=== PATIENT | male | born 1975 | race Two or more races ===

== ENCOUNTER 2018-06-08 19:10 | Emergency (ER) | payer SELFPAY ==
[~2018-06-08] VITALS: Ht 177.8 cm; Wt 81.6 kg
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
[2018-06-08 19:24] VITALS: BP 127/85
[2018-06-08] MEDS ORDERED: Norco 5mg/325mg tab PO ONE (19:45)
[2018-06-08] MEDS ORDERED: Ketorolac 30mg Inj IM ONE (19:45)
--- NOTE | 2018-06-08 20:03 | NUR ---
ED Nurse Note: Pt went to CT sacn.
--- NOTE | 2018-06-08 20:09 | NUR ---
ED Nurse Note: Pt back from CT scan, AO x 4times. Rest in bed, family is on bedside.
--- NOTE | 2018-06-08 20:17 | Diagnostic Imaging Report ---
EXAM: XR Left Ribs, 2 Views CLINICAL HISTORY: PAIN TECHNIQUE: Frontal and oblique views of the left ribs. COMPARISON: No relevant prior studies available. FINDINGS: Lungs: Unremarkable as visualized. No consolidation. Pleural space: Unremarkable. No pneumothorax. Bones/joints: No displaced rib fracture. IMPRESSION: 1. Unremarkable study. 2. No displaced rib fracture.
[2018-06-08 20:30] VITALS: BP 122/80
[2018-06-08] MEDS ORDERED: LIDODERM700 M1 TOPIC (20:34)
[2018-06-08] MEDS ORDERED: IBUPROFEN600 MG ORAL (20:34)
[2018-06-08] MEDS ORDERED: ACETAMINOPHEN-1 EAC1 ORAL (20:34)
[2018-06-08 20:35] VITALS: BP 122/80
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
== END 2018-06-08 20:46 | disposition home or self-care (01) ==
LOC: EDBD 19:10 → EMR 19:52
DX: S20.212A Contusion of left front wall of thorax, initial encounter (principal); W50.0XXA Accidental hit or strike by another person, initial encounter; Y92.9 Unspecified place or not applicable
CPT/HCPCS: 71100; 96372; 99283; J1885